=== PATIENT | male | born 1990 | race Caucasian/White ===

== ENCOUNTER 2022-11-08 16:33 | Emergency (ER) | payer MEDICAID, SELFPAY ==
[2022-11-08 16:36] VITALS: BP 134/90; PULSE 75; RESP 16; TEMP 36.7; O2SAT 100; BMI 34.2
--- NOTE | 2022-11-08 16:36 | ED.HA ---
HPI - Headache General Chief Complaint: Headache <Palma Zendejas NP - Last Filed: 11/08/22 16:39> Stated Complaint: migraine, Excedrin not working <Palma Zendejas NP - Last Filed: 11/08/22 16:39> Time Seen by Provider: 11/08/22 18:20 <Palma Zendejas NP - Last Filed: 11/08/22 16:39> Source: patient <TEDDY Haley - Last Filed: 11/08/22 20:13> Mode of arrival: ambulatory <TEDDY Haley - Last Filed: 11/08/22 20:13> Limitations: no limitations <TEDDY Haley - Last Filed: 11/08/22 20:13> History of Present Illness HPI Narrative: This is a 31-year-old male past medical history significant for migraine headaches presenting to the emergency department with a left-sided migraine that started this morning, not improving despite Excedrin. Patient tells me that this feels like his typical migraine w/ photophobia, no vision changes, dizziness, weakness, or reported head trauma. Patient tells me Excedrin usually helps however not for this 1. It does feel like his typical however not resolving. Patient denies chest pain, shortness of breath, neck pain, fevers, chills, nausea, vomiting, abdominal pain, headache, vision changes, tinnitus. Not on blood thinners. <TEDDY Haley - Last Filed: 11/08/22 20:13> Related Data Home Medications: Previous Rx's Medication Instructions Recorded diphenhydramine HCl 25 mg capsule 25 mg PO TID PRN headache #14 caps 11/08/22 (Benadryl) ketorolac 10 mg tablet 10 mg PO TID PRN pain 5 days #15 11/08/22 tabs metoclopramide HCl 10 mg tablet 10 mg PO Q6H PRN headache #14 tabs 11/08/22 (Reglan) <Palma Zendejas NP - Last Filed: 11/08/22 16:39> Allergies/Adverse Reactions: Allergies Allergy/AdvReac Type Severity Reaction Status Date / Time amoxicillin [From Augmentin] Allergy Mild Rash Verified 11/08/22 16:38 clavulanic acid Allergy Mild Rash Verified 11/08/22 16:38 [From Augmentin] seafood Allergy Mild Swelling Verified 11/08/22 16:38 tramadol Allergy Mild Swelling Verified 11/08/22 16:38 bees Allergy Mild Swelling Uncoded 11/08/22 16:38 <Palma Zendejas NP - Last Filed: 11/08/22 16:39> Review of Systems Review of Systems: Constitutional : No Weight loss, No Fever, No Chills, No Fatigue, No Malaise ENT/Mouth : No sore throat, No Rhinorrhea Eyes: No Eye Pain, No Swelling, No Redness Cardiovascular : No Chest Pain, No SOB, No Dyspnea on Exertion, No Orthopnea, No Edema, No Palpitations Respiratory : No Cough, No Sputum, No Wheezing Gastrointestinal : No Nausea, No Vomiting, No Diarrhea, No Constipation, No abdominal Pain, No Hematochezia, No Melena Genitourinary : No Dysuria, No Urinary Frequency, No Hematuria, Musculoskeletal : No joint pain, No Myalgias, No Joint Swelling Skin : No Skin Lesions, No rash Neuro : No Weakness, No Numbness, No Dizziness, + Headache Psych : No Anxiety/Panic, No Depression All other systems reviewed and are negative <TEDDY Haley - Last Filed: 11/08/22 20:13> Yes all other systems are reviewed and are negative <TEDDY Haley - Last Filed: 11/08/22 20:13> [facility] Past Medical History Attestation statement: The following information was validated with the patient. <TEDDY Haley - Last Filed: 11/08/22 20:13> Source: old records reviewed and nursing notes reviewed <TEDDY Haley - Last Filed: 11/08/22 20:13> Social History Social History: Social History Advance Directives: No Advance Directives Information Provided: No <Palma Zendejas NP - Last Filed: 11/08/22 16:39> Physical Exam Vital Signs: Vital Signs: Last Vital Signs Temp 98.1 F 11/08/22 16:36 Pulse 75 11/08/22 16:36 Resp 16 11/08/22 16:36 BP 134/90 H 11/08/22 16:36 Pulse Ox 100 11/08/22 16:36 O2 Del Method 11/08/22 16:36 BMI result Body Mass Index 34.2 <Palma Zendejas NP - Last Filed: 11/08/22 16:39> Vital Signs: Last Vital Signs Temp 98.1 F 11/08/22 16:36 Pulse 75 11/08/22 16:36 Resp 16 11/08/22 16:36 BP 134/90 H 11/08/22 16:36 Pulse Ox 100 11/08/22 16:36 O2 Del Method 11/08/22 16:36 BMI result Body Mass Index 34.2 vital signs stable <TEDDY Haley - Last Filed: 11/08/22 20:13> Appearance: Alert.? Oriented X3.? No acute distress.? Patient lying in dark room. Head: Normocephalic, atraumatic, no step-offs or deformities Eyes: Pupils equal, round and reactive to light.? CVS: Normal heart rate and rhythm.? Pulses normal.? Respiratory: No respiratory distress.? Breath sounds normal.? Abdomen: Soft and nontender.? Skin: Skin warm and dry.? Normal skin color.? Normal skin turgor.? Extremities: No lower extremity edema.? No calf ttp. 5/5 strength to bilateral upper and lower extremities Back: No midline tenderness, no C-spine tenderness, full range of motion, no CVA tenderness bilaterally Neuro: Oriented X 3.? No motor deficit.? No sensory deficit. CN 2-12 intact . Ambulating steady gait normal coordination. Normal [id number], [id number], negative Romberg and pronator drift. GCS of 15. NIH stroke scale 0. <TEDDY Haley - Last Filed: 11/08/22 20:13> Course Course Course Narrative: This is a rapid medical exam. Deferred additional HPI, ROS, PE to primary provider. 31 yo male with history of asthma, migraines here with left sided headache since waking not relieved with excedrin. Will obtain covid screen. VSS <Palma Zendejas NP - Last Filed: 11/08/22 16:39> Reevaluation(s) Reevaluation #1: Patient COVID negative. Patient tells me that his headache has completely resolved no more photophobia or pain. Patient feeling much better at this time. Ambulatory without difficulty. Neuro remains nonfocal. Educated patient on diagnosis and treatment plan, answered all question, patient verbalizes understanding. At this time patient will be discharged home, advised to return with new or worsening symptoms. Educated on worrisome signs and symptoms and when to return. At this time I feel comfortable discharge home. <TEDDY Haley - Last Filed: 11/08/22 20:13> Time: 20:11 <TEDDY Haley - Last Filed: 11/08/22 20:13> Medications Administered Discontinued Medications Generic Name Dose Route Start Last Admin Trade Name Freq PRN Reason Stop Dose Admin Diphenhydramine HCl 25 mg 11/08/22 18:32 11/08/22 19:23 Diphenhydramine Hcl 25 Mg Capsule PO 11/08/22 18:33 25 mg ONCE ONE Administration Ketorolac Tromethamine 30 mg 11/08/22 18:32 11/08/22 19:23 Ketorolac Tromethamine 30 Mg/Ml Vial IM 11/08/22 18:33 30 mg ONCE ONE Administration Metoclopramide HCl 10 mg 11/08/22 18:32 11/08/22 19:24 Metoclopramide Hcl 10 Mg Tablet PO 11/08/22 18:33 10 mg ONCE ONE Administration <Palma Zendejas NP - Last Filed: 11/08/22 16:39> Medications Administered Discontinued Medications Generic Name Dose Route Start Last Admin Trade Name Freq PRN Reason Stop Dose Admin Diphenhydramine HCl 25 mg 11/08/22 18:32 11/08/22 19:23 Diphenhydramine Hcl 25 Mg Capsule PO 11/08/22 18:33 25 mg ONCE ONE Administration Ketorolac Tromethamine 30 mg 11/08/22 18:32 11/08/22 19:23 Ketorolac Tromethamine 30 Mg/Ml Vial IM 11/08/22 18:33 30 mg ONCE ONE Administration Metoclopramide HCl 10 mg 11/08/22 18:32 11/08/22 19:24 Metoclopramide Hcl 10 Mg Tablet PO 11/08/22 18:33 10 mg ONCE ONE Administration <TEDDY Haley - Last Filed: 11/08/22 20:13> Medical Decision Making Medical Decision Making [facility] Narrative: 1831 31-year-old male presents with migraine headache that feels like typical however not resolving with Excedrin. Physical examination benign. Neuro nonfocal. Cerebellar intact. GCS of 15 NIH stroke scale 0. Likely typical migraine. Unlikely meningitis, intracranial hemorrhage, stroke, posterior stroke. No indication for head CT at this time no focal neuro deficits no need for CTA. Plan at this time is COVID screen which was done from triage. Will give Reglan and Benadryl by mouth and re-evaluate patient. <TEDDY Haley - Last Filed: 11/08/22 20:13> Differential Diagnosis Differential Diagnoses: The differential diagnosis associated with the presentation includes <TEDDY Haley - Last Filed: 11/08/22 20:13> Likely typical migraine. Unlikely meningitis, intracranial hemorrhage, stroke, posterior stroke. <TEDDY Haley - Last Filed: 11/08/22 20:13> Admission/Observation Consideration of admission/observation: Escalation of care including admission/observation considered <TEDDY Haley - Last Filed: 11/08/22 20:13> Lab Data [facility] Lab Attestation statement: I reviewed the patient's lab results. <TEDDY Haley - Last Filed: 11/08/22 20:13> Labs: Lab Results 11/08/22 Range/Units 18:27 COVID-19 (PRISCILLA) Negative (Negative) COVID-19 Clin Com See Note <Palma Zendejas NP - Last Filed: 11/08/22 16:39> Lab Results 11/08/22 Range/Units 18:27 COVID-19 (PRISCILLA) Negative (Negative) COVID-19 Clin Com See Note <TEDDY Haley - Last Filed: 11/08/22 20:13> Tests considered The following testing was considered but not selected: No indication for head CT at this time no focal neuro deficits no need for CTA. <TEDDY Haley - Last Filed: 11/08/22 20:13> Prescription Management I considered prescription management with: Pain Medication <TEDDY Haley - Last Filed: 11/08/22 20:13> Core Measures AMI core measures followed: Yes <TEDDY Haley - Last Filed: 11/08/22 20:13> Discharge Plan Discharge Clinical Impression: Migraine <Palma Zendejas NP - Last Filed: 11/08/22 16:39> Patient Disposition: Home, Self-Care <Palma Zendejas NP - Last Filed: 11/08/22 16:39> Instructions: Migraine Headache (ED) <Palma Zendejas NP - Last Filed: 11/08/22 16:39> Additional Instructions: Take your medications as prescribed. If you were prescribed antibiotics today, it is important that you take your medication to their entirety, do not skip any doses, do not finish them early. Follow-up with your primary care provider this week. Please follow-up with neurology information below call to schedule an appointment as soon as possible Return to the emergency department with new or worsening symptoms. Such as fevers, chills, chest pain, shortness of breath, nausea, vomiting, dizziness, headache, vision changes, lethargy In case of emergency call 911 When taking medications for a migraine you should always take Benadryl and Reglan together, do not take Reglan alone as it will cause involuntary muscle twitching. Toradol has been sent to your pharmacy, you tolerated this well in the department. Please take this as prescribed do not take this with ibuprofen, or other NSAIDs, do not mix this with alcohol. Side effects of this medication including increased risk for bleeding and possible kidney injury. <Palma Zendejas NP - Last Filed: 11/08/22 16:39> Prescriptions: New metoclopramide HCl [Reglan] 10 mg tablet 10 mg PO Q6H PRN (Reason: headache) Qty: 14 0RF diphenhydramine HCl [Benadryl] 25 mg capsule 25 mg PO TID PRN (Reason: headache) Qty: 14 0RF ketorolac 10 mg tablet 10 mg PO TID PRN (Reason: pain) 5 Days Qty: 15 0RF Rx Instructions: Tolerated IM in the department <Palma Zendejas NP - Last Filed: 11/08/22 16:39> Referrals: [facility] [place] Neuro/Sleep [Provider Group] - 2 days <Palma Zendejas NP - Last Filed: 11/08/22 16:39> Stand Alone Forms: Work/School Release <Palma Zendejas NP - Last Filed: 11/08/22 16:39>
[2022-11-08 18:58] LABS: COVID-19 Test Negative (Negative); IDNOW Serial# 16C4AD1C
[2022-11-08] MEDS: Ketorolac Tromethamine 30 MG/ML VIAL IM (19:23)
[2022-11-08] MEDS: diphenhydrAMINE HCL 25 MG CAPSULE PO (19:23)
[2022-11-08] MEDS: Metoclopramide HCl 10 MG TABLET PO (19:24)
== END 2022-11-08 20:21 | disposition home or self-care (01) ==
PROVIDERS: Nurse Practitioner Family; Emergency Provider Emergency Medicine
DX: G43.909 Migraine, unspecified, not intractable, without status migrainosus (principal); Z20.822 Contact with and (suspected) exposure to COVID-19; Z20.828 Contact with and (suspected) exposure to other viral communicable diseases; Z79.899 Other long term (current) drug therapy
CPT/HCPCS: 87635; 99283; 99284; J1885